=== PATIENT | female | born 1950 | race Caucasian/White ===

== ENCOUNTER 2018-10-05 17:30 | Emergency (ER) | payer BC, OTHER ==
[~2018-10-05] VITALS: Ht 157.5 cm; Wt 82.1 kg
[2018-10-05 17:47] VITALS: BP 153/63
== END 2018-10-05 19:18 | disposition left against medical advice (07) ==
LOC: ER 17:35
DX: S61.012A Laceration without foreign body of left thumb without damage to nail, initial encounter (principal); Z53.21 Procedure and treatment not carried out due to patient leaving prior to being seen by health care provider; X58.XXXA Exposure to other specified factors, initial encounter; Y93.89 Activity, other specified; Y99.8 Other external cause status; Y92.89 Other specified places as the place of occurrence of the external cause

== ENCOUNTER 2018-10-06 14:52 | Emergency (ER) | payer BC, OTHER ==
[~2018-10-06] VITALS: Ht 157.5 cm; Wt 82.1 kg
[2018-10-06 15:20] VITALS: BP 143/70
[2018-10-06] MEDS ORDERED: TETANUS-DIPTH-ACEL PERTUSSIS 0.5ML SYRG IM ONE (17:30)
[2018-10-06] MEDS ORDERED: cefTRIAXone SOD 1,000 MG VL IM ONE (17:30)
== END 2018-10-06 17:52 | disposition home or self-care (01) ==
LOC: ER 14:57
DX: S61.011A Laceration without foreign body of right thumb without damage to nail, initial encounter (principal); S60.021A Contusion of right index finger without damage to nail, initial encounter; E11.9 Type 2 diabetes mellitus without complications; Z86.73 Personal history of transient ischemic attack (TIA), and cerebral infarction without residual deficits; Z90.49 Acquired absence of other specified parts of digestive tract; Z88.0 Allergy status to penicillin; Z88.2 Allergy status to sulfonamides; W10.8XXA Fall (on) (from) other stairs and steps, initial encounter; Y93.89 Activity, other specified; Y92.89 Other specified places as the place of occurrence of the external cause; Y99.8 Other external cause status
CPT/HCPCS: 73130; 90471; 90715; 96372; 99283; J0696